=== PATIENT | female | born 1995 | race Caucasian/White ===

== ENCOUNTER 2016-11-07 21:45 | Emergency (ER) | payer OTHER ==
[~2016-11-07] VITALS: Ht 167.6 cm; Wt 65.0 kg
[2016-11-07 23:44] VITALS: BP 105/70
== END 2016-11-07 23:46 | disposition home or self-care (01) ==
LOC: ED 22:00
DX: T37.8X5A Adverse effect of other specified systemic anti-infectives and antiparasitics, initial encounter (principal); Y92.9 Unspecified place or not applicable
CPT/HCPCS: 99283